=== PATIENT | female | born 2000 | race Caucasian/White ===

== ENCOUNTER 2020-06-24 12:52 | Emergency (ER) | payer OTHER, SELFPAY ==
[2020-06-24 12:55] VITALS: BP 122/60; PULSE 97; RESP 16; TEMP 37.2; O2SAT 100
--- NOTE | 2020-06-24 13:00 | ED.GENADULT ---
HPI - General Adult General Chief complaint: Urogenital-Female Stated complaint: vaginal swelling/itchy Time Seen by Provider: 06/24/20 13:00 Source: patient Mode of arrival: ambulatory Limitations: no limitations History of Present Illness HPI narrative: 20-year-old female patient presents to the [facility] with complaints of vaginal symptoms for the past 2 to 3 days. Patient states that she did have unprotected sex with a male about 8 to 10 days ago. Patient states that that partner has given her an STD before in the past. Patient denies any sexual intercourse with any other people besides his male. Patient states she does participate in vaginal intercourse as well as oral sex. Patient states she is with males only. Patient states she started having itching to the vaginal area with some thick white discharge, irritation and when she urinates it does burn. Patient states she is concerned about possible STDs. Patient does have history of PCOS. Not currently on control. Patient denies any urgency or frequency of urination. Denies any low back pain. Denies any fever, body aches or chills. Related Data Home Medications Medication Instructions Recorded Confirmed fluoxetine [Prozac] 40 mg PO DAILY 06/24/20 06/24/20 Allergies Allergy/AdvReac Type Severity Reaction Status Date / Time cephalexin Allergy Intermediate Nausea and Verified 06/24/20 13:19 Vomiting methylphenidate AdvReac Intermediate Jittery Verified 06/24/20 13:19 [From Ritalin] Review of Systems Review of Systems: Narrative: CONSTITUTIONAL: Denies fever, chills, or sweats. EYES: Denies visual changes, redness, or discharge. ENT: Denies rhinorrhea, congestion, sore throat, or otalgia. CARDIOVASCULAR: Denies chest pain, palpitations, or edema. RESPIRATORY: Denies cough or dyspnea. GASTROINTESTINAL: Denies abdominal pain, nausea, vomiting, or diarrhea. GENITOURINARY: Denies dysuria or hematuria. Positive vaginal discharge with burning, itchiness x3 days SKIN: Denies rash or itching. MUSCULOSKELETAL: Denies back pain, joint pain, or myalgia. NEUROLOGIC: Denies headache, numbness, or weakness. PSYCHIATRIC: Denies anxiety or depression. [facility] Past Medical History Medical History (Updated 06/24/20 @ 13:36 by CADE Westbrook) ADHD OCD (obsessive compulsive disorder) PCOS (polycystic ovarian syndrome) Social History Social History Gender identity (if verbalized by the patient): Female Comments At the time of my signature I agree with nursing past medical history, surgical, social, and family history. There is no relevant family history pertinent to the presenting complaint. Exam Narrative: Exam Narrative: GENERAL: Well-appearing, well-nourished, and in no acute distress. HEAD: Normocephalic, atraumatic. EYES: PERRLA and EOMI. ENT: Nares clear, no rhinorrhea or epistaxis. Mucous membranes moist. NECK: Supple. No lymphadenopathy CHEST: Clear to auscultation. No respiratory distress. HEART: Regular rate and rhythm. No murmur heard. Normal peripheral pulses. ABDOMEN: Soft, nontender, nondistended, normal active bowel sounds. : Normal external female genitalia. OS is closed. NoTTP to bilateral sides on manual exam. No CVA tenderness to percussion. Patient does have thick chunky white discharge noted around the cervix and vaginal canal. No obvious odor noted. No erythema or strawberry cervix is noted at this time. EXTREMITIES: Normal range of motion. No edema. SKIN: Warm, dry, no rash. NEURO: No focal deficits. Alert and oriented x3. Course Vital Signs Vital signs: Vital signs reviewed. Medical Decision Making Differential Diagnosis Differential Diagnosis: Differential diagnosis: Gonorrhea, chlamydia, Trichomonas, bacterial vaginosis, herpes, HIV, yeast infection, urinary tract infection. Uncomplicated lower UTI, uncomplicated UTI, pyelonephritis Discussed with patient I am
[2020-06-24] MEDS: LIDOCAINE HCL 1% LOCAL INJ 20 ML VIAL IM (13:43)
[2020-06-24] MEDS: AZITHROMYCIN 250 MG TABLET 1000 MG PO (13:44)
[2020-06-24] MEDS: cefTRIAXone 250 MG VIAL IM (13:44)
== END 2020-06-24 14:08 | disposition home or self-care (01) ==
PROVIDERS: Emergency Provider Nurse Practitioner Family
DX: Z20.2 Contact with and (suspected) exposure to infections with a predominantly sexual mode of transmission (principal); N89.8 Other specified noninflammatory disorders of vagina; E28.2 Polycystic ovarian syndrome; F42.9 Obsessive-compulsive disorder, unspecified
CPT/HCPCS: 81003; 81025; 87086; 87088; 87491; 87591; 87661; 96372; 99214; A9270; G0463; J0696